=== PATIENT | male | born 1930 | race Caucasian/White ===

== ENCOUNTER 2017-12-06 06:21 | Day surgery (SDC) | payer MEDICARE, BC ==
[~2017-12-06 06:21] MED LIST: SOD CHLORIDE 0.45% 1,000 ML IV
[2017-12-06] MEDS ORDERED: IODIXANOL LOCM 100 ML BTL ×2 (06:59→08:38)
[2017-12-06] MEDS ORDERED: LIDOCAINE 1% (MDV) 20 ML INJ (06:59)
[2017-12-06] MEDS ORDERED: VERAPAMIL 5 MG INJ (07:27)
[2017-12-06] MEDS ORDERED: HEPARIN 1000 UNITS/ML 10 ML INJ (07:27)
[2017-12-06] MEDS ORDERED: NITROGLYCERIN (IC) 100 MCG/ML INJ (07:27)
[2017-12-06] MEDS ORDERED: MIDAZOLAM 1 MG/ML 2 ML INJ (07:48)
[2017-12-06] MEDS ORDERED: FENTAnyl 50 MCG/ML VIAL (07:48)
[2017-12-06] MEDS ORDERED: IODIXANOL LOCM 50 ML BTL (08:18)
[2017-12-06] MEDS ORDERED: SOD CHLORIDE 0.9% 1,000 ML IV (08:56)
[2017-12-06] MEDS ORDERED: AL HYDROX/MG HYDROX/SIMETH 30 ML CUP PO (09:00)
[2017-12-06] MEDS ORDERED: ONDANSETRON 4 MG INJ IV (09:00)
[2017-12-06] MEDS ORDERED: ACETAMINOPHEN 325 MG TAB PO (09:00)
== END 2017-12-06 13:07 | disposition home or self-care (01) ==
LOC: SDS 06:21
DX: I25.10 Atherosclerotic heart disease of native coronary artery without angina pectoris (principal); I35.0 Nonrheumatic aortic (valve) stenosis; E78.5 Hyperlipidemia, unspecified; I10 Essential (primary) hypertension; I73.9 Peripheral vascular disease, unspecified
CPT/HCPCS: 82962; 93005; 93454; 93571; 93572

== ENCOUNTER 2017-12-17 12:00 | Inpatient (IN) | payer MEDICARE, BC ==
[2017-12-17 14:05] LABS: ADD MAN DIFF? NO
[2017-12-17 14:08] LABS: WHITE BLOOD COUNT 8.3 10^3/ul (4.8-10.8)
[2017-12-17 14:08] LABS: BASOPHILS % 0.5 % (0.0-2.0); EOSINOPHILS % 0.5 % (0.0-7.0); HEMATOCRIT 24.8 % (42.0-52.0); HEMOGLOBIN 8.2 g/dl (14.0-18.0); LYMPHOCYTES # 1.3 10^3/ul (0.8-2.9); LYMPHOCYTES % 16.1 % (15.0-51.0); MEAN CORPUSCULAR HGB CONC 33.1 g/dl (32.0-37.0); MEAN CORPUSCULAR VOLUME 87.6 fl (82.0-101.0); MEAN PLATELET VOLUME 11.2 fl (7.4-10.4); MONOCYTE # 0.6 10^3/ul (0.3-0.9); NEUTROPHIL # 6.3 10^3/ul (1.6-7.5); NEUTROPHILS % 75.1 % (39.0-77.0); PLATELET COUNT 209 10^3/UL (140-415); RED BLOOD COUNT 2.83 10^6/ul (4.70-6.10)
[2017-12-17 14:31] LABS: ALANINE AMINOTRANSFERASE 34 IU/L (13-69); ALBUMIN 3.9 g/dl (3.3-4.9); ALBUMIN/GLOBULIN RATIO 1.25; ALKALINE PHOSPHATASE 59 IU/L (42-121); ANION GAP 16 (8-16); ASPARTATE AMINO TRANSFERASE 21 IU/L (15-46); BLOOD UREA NITROGEN 31 mg/dl (7-20); CALCIUM 8.9 mg/dl (8.4-10.2); CARBON DIOXIDE 25 mmol/L (21-31); CHLORIDE 103 mmol/L (97-110); CREATININE 1.41 mg/dl (0.61-1.24); GLUCOSE 140 mg/dl (70-220); POTASSIUM 4.2 mmol/L (3.5-5.1); SODIUM 140 mmol/L (135-144)
[2017-12-17 14:48] LABS: TROPONIN-I < 0.012 ng/ml (0.00-0.12)
[2017-12-17 14:57] LABS: INR 1.03; PROTIME 13.6 Sec (11.9-14.9); PT RATIO 1.1
[2017-12-17 14:58] LABS: PARTIAL THROMBOPLASTIN TIME 28.5 Sec (25.0-35.0)
[2017-12-17] MEDS ORDERED: ACETAMINOPHEN 325 MG TAB PO (15:00)
[2017-12-17] MEDS ORDERED: ONDANSETRON 4 MG INJ IV ×2 (15:00→15:30)
[2017-12-17] MEDS: CIPROFLOXACIN 400MG/D5W 200 ML IVPB ×2 (15:00→20:17)
[2017-12-17] MEDS ORDERED: HYDROCODONE/APAP (5/325) TAB PO (15:30)
[2017-12-17] MEDS ORDERED: GLUCOSE GEL 15 GRAM TUBE PO ×2 (15:30)
[2017-12-17] MEDS ORDERED: BISACODYL (EC) 5 MG TAB PO (15:30)
[2017-12-17] MEDS ORDERED: GLUCOSE GEL 15 GRAM TUBE BUCCAL (15:30)
[2017-12-17] MEDS ORDERED: DEXTROSE 50% 50 ML SYRINGE IV ×2 (15:30)
[2017-12-17] MEDS ORDERED: NACL 0.9% 3 ML SYG IV (15:30)
[2017-12-17] MEDS ORDERED: morphine 2 MG INJ IV (15:30)
[2017-12-17] MEDS ORDERED: LORAZEPAM 0.5 MG TAB PO (15:30)
[2017-12-17] MEDS ORDERED: GLUCAGON 1 MG INJ IM (15:30)
[2017-12-17] MEDS: metroNIDAZOLE 500 MG/NS (PMX) 100 ML IVPB ×2 (15:50→21:35)
[2017-12-17] MEDS: SOD CHLORIDE 0.9% 1,000 ML IV (15:50)
[2017-12-17] MEDS: INSULIN ASPART [NOVOLOG] 3 ML PEN SC ×2 (18:00→21:01)
[2017-12-17 18:06] LABS: HEMATOCRIT 21.2 % (42.0-52.0); HEMOGLOBIN 7.2 g/dl (14.0-18.0)
[2017-12-17] MEDS: ATORVASTATIN 20 MG TAB PO (20:45)
[2017-12-17] MEDS: PANTOPRAZOLE 40 MG INJ IV (20:46)
[2017-12-17 22:34] LABS: IMMEDIATE SPIN CROSSMATCH 1 1
[2017-12-18] MEDS: ACCU-CHEK XX (01:55)
[2017-12-18] MEDS: PANTOPRAZOLE 40 MG INJ IV ×2 (05:32→17:29)
[2017-12-18] MEDS: metroNIDAZOLE 500 MG/NS (PMX) 100 ML IVPB ×3 (05:33→22:00)
[2017-12-18] MEDS ORDERED: PANTOPRAZOLE 40 MG INJ IV (06:00)
[2017-12-18 07:45] LABS: ADD MAN DIFF? NO
[2017-12-18 07:52] LABS: BASOPHILS % 0.5 % (0.0-2.0); EOSINOPHILS # 0.2 10^3/ul (0.0-0.5); EOSINOPHILS % 2.4 % (0.0-7.0); HEMATOCRIT 24.5 % (42.0-52.0); HEMOGLOBIN 8.3 g/dl (14.0-18.0); LYMPHOCYTES # 1.5 10^3/ul (0.8-2.9); LYMPHOCYTES % 22.9 % (15.0-51.0); MEAN CORPUSCULAR HEMOGLOBIN 29.5 pg (29.0-33.0); MEAN CORPUSCULAR HGB CONC 33.9 g/dl (32.0-37.0); MEAN CORPUSCULAR VOLUME 87.2 fl (82.0-101.0); MEAN PLATELET VOLUME 10.8 fl (7.4-10.4); MONOCYTE # 0.6 10^3/ul (0.3-0.9); MONOCYTES % 9.2 % (0.0-11.0); NEUTROPHIL # 4.2 10^3/ul (1.6-7.5); NEUTROPHILS % 64.1 % (39.0-77.0); PLATELET COUNT 161 10^3/UL (140-415); RED BLOOD COUNT 2.81 10^6/ul (4.70-6.10); RED CELL DISTRIBUTION WIDTH 14.3 % (11.5-14.5)
[2017-12-18 07:52] LABS: WHITE BLOOD COUNT 6.5 10^3/ul (4.8-10.8)
[2017-12-18 08:06] LABS: HEMOGLOBIN A1C 6.3 % (0-5.9)
[2017-12-18 08:10] LABS: IRON 41 ug/dl (35-150)
[2017-12-18] MEDS: INSULIN ASPART [NOVOLOG] 3 ML PEN SC ×4 (08:12→20:47)
[2017-12-18 08:16] LABS: ALANINE AMINOTRANSFERASE 32 IU/L (13-69); ALBUMIN 3.3 g/dl (3.3-4.9); ALKALINE PHOSPHATASE 50 IU/L (42-121); ANION GAP 16 (8-16); ASPARTATE AMINO TRANSFERASE 19 IU/L (15-46); BILIRUBIN,INDIRECT 0.1 mg/dl (0-1.1); BILIRUBIN,TOTAL 0.1 mg/dl (0.2-1.3); BLOOD UREA NITROGEN 27 mg/dl (7-20); CALCIUM 8.8 mg/dl (8.4-10.2); CARBON DIOXIDE 27 mmol/L (21-31); CHLORIDE 107 mmol/L (97-110); CREATININE 1.26 mg/dl (0.61-1.24); GLUCOSE 142 mg/dl (70-220); MAGNESIUM 1.7 mg/dl (1.7-2.5); POTASSIUM 4.5 mmol/L (3.5-5.1); SODIUM 145 mmol/L (135-144); TOTAL PROTEIN 6.3 g/dl (6.1-8.1)
[2017-12-18] MEDS: CIPROFLOXACIN 400MG/D5W 200 ML IVPB ×2 (08:18→20:41)
[2017-12-18 08:20] LABS: % IRON SATURATION 16 % SAT (22-52); TOTAL IRON BINDING CAPACITY 263 ug/dl (241-421)
[2017-12-18] MEDS: FEBUXOSTAT 40 MG TABLET PO (08:21)
[2017-12-18] MEDS: METOPROLOL (XL) 50 MG TAB PO (08:21)
[2017-12-18] MEDS: FELODIPINE (ER) 10 MG TAB PO (08:22)
[2017-12-18] MEDS: LISINOPRIL 20 MG TAB PO (08:22)
[2017-12-18] MEDS: HYDROCHLOROTHIAZIDE 12.5 MG CAP PO (08:22)
[2017-12-18] MEDS ORDERED: NON-FORMULARY/PATIENT OWN MED (Omeprazole* 40 MG) PO (09:00)
[2017-12-18] MEDS ORDERED: ASPIRIN 81 MG TAB PO (09:00)
[2017-12-18] MEDS: SOD CHLORIDE 0.9% 1,000 ML IV (10:49)
[2017-12-18 11:44] LABS: HEMATOCRIT 26.4 % (42.0-52.0); HEMOGLOBIN 8.8 g/dl (14.0-18.0)
[2017-12-18] MEDS: ACETYLCYSTEINE 600 MG CAP PO (11:45)
[2017-12-18 13:35] LABS: CARCINOEMBRYONIC ANTIGEN 0.8 ng/ml (0.0-5.0)
[2017-12-18] MEDS: LORAZEPAM 2 MG INJ IV (14:43)
[2017-12-18] MEDS: SOD CHLORIDE 0.45% 1,000 ML IV (15:49)
[2017-12-18 16:27] LABS: FERRITIN 26.7 ng/ml (11.1-264.0)
[2017-12-18] MEDS ORDERED: SOD FERRIC GLUC COMPLX 125 MG in SOD CHLORIDE 0.9% 100 ML IVPB (17:00)
[2017-12-18] MEDS: INSULIN GLARGINE [LANtus] 3 ML PEN SC (17:34)
[2017-12-18] MEDS: ATORVASTATIN 20 MG TAB PO (20:41)
[2017-12-18] MEDS: ACETAMINOPHEN 325 MG TAB PO (22:01)
[2017-12-19] MEDS: ACCU-CHEK XX (02:00)
[2017-12-19] MEDS: PANTOPRAZOLE 40 MG INJ IV (05:27)
[2017-12-19] MEDS: metroNIDAZOLE 500 MG/NS (PMX) 100 ML IVPB (05:29)
[2017-12-19 06:13] LABS: ADD MAN DIFF? NO
[2017-12-19 06:21] LABS: WHITE BLOOD COUNT 7.1 10^3/ul (4.8-10.8)
[2017-12-19 06:21] LABS: BASOPHILS % 0.3 % (0.0-2.0); EOSINOPHILS # 0.3 10^3/ul (0.0-0.5); EOSINOPHILS % 4.4 % (0.0-7.0); HEMOGLOBIN 8.1 g/dl (14.0-18.0); LYMPHOCYTES # 1.5 10^3/ul (0.8-2.9); LYMPHOCYTES % 20.5 % (15.0-51.0); MEAN CORPUSCULAR HEMOGLOBIN 29.8 pg (29.0-33.0); MEAN CORPUSCULAR HGB CONC 33.8 g/dl (32.0-37.0); MEAN CORPUSCULAR VOLUME 88.2 fl (82.0-101.0); MONOCYTE # 0.7 10^3/ul (0.3-0.9); MONOCYTES % 9.4 % (0.0-11.0); NEUTROPHIL # 4.6 10^3/ul (1.6-7.5); NEUTROPHILS % 64.7 % (39.0-77.0); PLATELET COUNT 169 10^3/UL (140-415); RED BLOOD COUNT 2.72 10^6/ul (4.70-6.10); RED CELL DISTRIBUTION WIDTH 14.5 % (11.5-14.5)
[2017-12-19 06:46] LABS: ANION GAP 13 (8-16); BLOOD UREA NITROGEN 20 mg/dl (7-20); CALCIUM 8.6 mg/dl (8.4-10.2); CARBON DIOXIDE 26 mmol/L (21-31); CHLORIDE 109 mmol/L (97-110); CREATININE 1.22 mg/dl (0.61-1.24); GLUCOSE 111 mg/dl (70-220); SODIUM 144 mmol/L (135-144)
[2017-12-19] MEDS: INSULIN ASPART [NOVOLOG] 3 ML PEN SC ×2 (07:55→12:25)
[2017-12-19] MEDS: HYDROCHLOROTHIAZIDE 12.5 MG CAP PO (08:00)
[2017-12-19] MEDS: FEBUXOSTAT 40 MG TABLET PO (08:00)
[2017-12-19] MEDS: FELODIPINE (ER) 10 MG TAB PO (08:01)
[2017-12-19] MEDS: LISINOPRIL 20 MG TAB PO (08:01)
[2017-12-19] MEDS: INSULIN GLARGINE [LANtus] 3 ML PEN SC (08:01)
[2017-12-19] MEDS: CIPROFLOXACIN 400MG/D5W 200 ML IVPB (08:02)
[2017-12-19] MEDS: METOPROLOL (XL) 50 MG TAB PO (08:02)
[2017-12-19] MEDS: SOD CHLORIDE 0.45% 1,000 ML IV (10:00)
[2017-12-19] MEDS: DOCUSATE SODIUM 100 MG CAP PO (12:25)
[2017-12-19] MEDS: FERROUS SULFATE (EC) 325 MG TAB PO (12:27)
[2017-12-19] MEDS: SOD FERRIC GLUC COMPLX 125 MG in SOD CHLORIDE 0.9% 100 ML IVPB (13:13)
== END 2017-12-19 15:00 | disposition home or self-care (01) | DRG 394 ==
LOC: MS2 12-18 07:37 → E/R 12:00 → MS2 14:54
PROVIDERS: Pediatrics
PROC: 30233N1 Transfusion of Nonautologous Red Blood Cells into Peripheral Vein, Percutaneous Approach (ICD-10-PCS; principal; 2017-12-17)
DX: K64.9 Unspecified hemorrhoids (principal); R71.0 Precipitous drop in hematocrit; N17.9 Acute kidney failure, unspecified; E11.9 Type 2 diabetes mellitus without complications; K62.5 Hemorrhage of anus and rectum; D64.9 Anemia, unspecified; K57.32 Diverticulitis of large intestine without perforation or abscess without bleeding; I10 Essential (primary) hypertension; E78.5 Hyperlipidemia, unspecified; I25.10 Atherosclerotic heart disease of native coronary artery without angina pectoris; I25.2 Old myocardial infarction; K21.9 Gastro-esophageal reflux disease without esophagitis; K57.30 Diverticulosis of large intestine without perforation or abscess without bleeding; M10.9 Gout, unspecified; Z95.5 Presence of coronary angioplasty implant and graft; D35.01 Benign neoplasm of right adrenal gland; Z87.891 Personal history of nicotine dependence; Z79.84 Long term (current) use of oral hypoglycemic drugs; Z79.82 Long term (current) use of aspirin
CPT/HCPCS: 36415; 36430; 71045; 74176; 74182; 80048; 80053; 82378; 82728; 82962; 83036; 83540; 83735; 84484; 85014; 85018; 85025; 85610; 85730; 86850; 86900; 86901; 86920; 93005; 96374; 99285-25